=== PATIENT | female | born 1990 | race Caucasian/White ===

== ENCOUNTER 2020-01-10 10:41 | Emergency (ER) | payer OTHER ==
[~2020-01-10] VITALS: Ht 152.4 cm; Wt 59.9 kg
[2020-01-10 10:55] VITALS: BP 118/79
[2020-01-10] MEDS ORDERED: KETOROLAC 60 MG/2 ML VIAL IM ONE (11:15)
--- NOTE | 2020-01-10 11:30 | NUR ---
29 Y/O FEMALE PRESENTS TO ER WITH C/O HEAD PRESSURE X 2 WEEKS. 6/10 PAIN. PT STATES SHE HAS RECURRING EAR INFECTIONS, AND HAS BEEN RX'D DIFFERENT ANTIBIOTICS, BUT IS NOW FEELING "PRESSURE" INSIDE THE HEAD, AND DIZZINESS, AND VERTIGO, WITH NAUSEA. DENIES VOMITING, DIARRHEA, SOB, COUGH, FEVER, INJURY/TRAUMA TO HEAD, VISION CHANGES. A&O X4, VSS, PERRLA, R/R EQUAL, AND UNLABORED. LIGHTS DIMMED, BED IN LOW POSITION, SIDE RAIL X1, WILL CONTINUE TO MONITOR. NKDA PMH: ANEMIA
--- NOTE | 2020-01-10 12:26 | NUR ---
PT RESTING IN BED QUIETLY, PLAYING ON CELL PHONE. A&O X4, VSS, R/R EQUAL, AND UNLABORED. SIDE RAIL X1 BED IN LOW POSITION, WILL CONTINUE TO MONITOR.
--- NOTE | 2020-01-10 13:35 | NUR ---
PT RESTING IN BED QUIETLY. A&O X4, VSS, R/R EQUAL, AND UNLABORED. SIDE RAIL X1 BED IN LOW POSITION, WILL CONTINUE TO MONITOR.
[2020-01-10 13:58] VITALS: BP 118/79
--- NOTE | 2020-01-10 13:59 | NUR ---
Patient discharged with v/s stable. Written and verbal after care instructions given and explained. Patient alert, oriented and verbalized understanding of instructions. Ambulatory with steady gait. All questions addressed prior to discharge. ID band removed. Patient advised to follow up with PMD. Rx of JOHN MUNSON given. Patient educated on indication of medication including possible reaction and side effects. Opportunity to ask questions provided and answered.
== END 2020-01-10 13:59 | disposition home or self-care (01) ==
LOC: MED 10:41
DX: R51.9 Headache, unspecified (principal); R00.2 Palpitations; Z98.890 Other specified postprocedural states
CPT/HCPCS: 81002; 81025; 93005; 96372; 99283; J1885